=== PATIENT | male | born 1950 | race African-American/Black ===

== ENCOUNTER 2017-05-24 19:10 | Emergency (ER) | payer MEDICARE, MEDICAID ==
[~2017-05-24] VITALS: Ht 71.1 cm; Wt 36.3 kg
[~2017-05-24 19:10] MED LIST: UNOBMED
[2017-05-24 19:31] VITALS: BP 148/61
[2017-05-24 20:41] VITALS: BP 148/61
--- NOTE | 2017-05-24 21:12 | Emergency Room Report ---
History of Present Illness General Chief Complaint: Chest Pain Source: Patient Present Illness HPI 67-year-old male presents ED for evaluation. Patient complaining of chest pain and seizures. States he's been having seizures are not for the last several years. States he is currently not on any medication because "no one has prescribed it to me". Patient also complaining of chest pain. Sharp. Intermittent. Nonradiating. 10/11. Denies shortness of breath. Denies drug use. No other area relieving factors. Denies any other associated symptoms Allergies: Coded Allergies: No Known Allergies (Unverified , 12/06/15) Patient History Past Medical History: HTN, seizures Past Surgical History: none Pertinent Family History: none Social History: Denies: smoking, alcohol use, drug use Immunizations: UTD Reviewed Nursing Documentation: PMH: Agreed, PSxH: Agreed Nursing Documentation-PMH Past Medical History: No History, Except For Hx Cardiac Problems: Yes Hx Hypertension: Yes Hx Cancer: No Hx Gastrointestinal Problems: No Hx Neurological Problems: No Review of Systems All Other Systems: negative except mentioned in HPI Physical Exam Vital Signs Date Time Temp Pulse Resp B/P (MAP) Pulse Ox O2 Delivery O2 Flow Rate FiO2 05/24/17 19:24 97.0 94 16 148/51 100 Room Air 97.0 Sp02 EP Interpretation: reviewed, normal General Appearance: no apparent distress, alert, GCS 15, non-toxic Head: normocephalic, atraumatic Eyes: bilateral eye normal inspection, bilateral eye PERRL ENT: hearing grossly normal, normal pharynx, no angioedema, normal voice Neck: full range of motion, supple/symm/no masses Respiratory: chest non-tender, lungs clear, normal breath sounds, speaking full sentences Cardiovascular #1: regular rate, rhythm, no edema Cardiovascular #2: 2+ carotid (R), 2+ carotid (L), 2+ radial (R), 2+ radial (L) , 2+ dorsalis pedis (R), 2+ dorsalis pedis (L) Gastrointestinal: normal bowel sounds, non tender, soft, non-distended, no guarding, no rebound Rectal: deferred Genitourinary: normal inspection, no CVA tenderness Musculoskeletal: back normal, gait/station normal, non-tender Neurologic: alert, oriented x3, responsive, motor strength/tone normal, sensory intact, speech normal Psychiatric: judgement/insight normal, memory normal, mood/affect normal, no suicidal/homicidal ideation Reflexes: 3+ bicep (R), 3+ bicep (L), 3+ tricep (R), 3+ tricep (L), 3+ knee (R) , 3+ knee (L) Skin: normal color, no rash, warm/dry, well hydrated Lymphatic: no adenopathy Medical Decision Making Diagnostic Impression: Primary Impression: Chest pain Qualified Codes: R07.9 - Chest pain, unspecified ER Course Hospital Course 67-year-old male presents ED complaining of chest pain Differential diagnoses include: CA/unstable angina, contusion, muscle strain, PTX, rib fracture Clinical course Patient placed on stretcher. on diagnostic cardiac sonographer. After initial history and physical I ordered labs, EKG, chest x-ray EKG - NSR, twave inversions in lateral leads Chest x-ray- hyperinflated lungs. Patient declines IV access or blood draw. Reviewed EMR patient was previously admitted here for chest pain. Troponins were negative. Cocaine positive. Explained to patient that if he refuses blood draw he will have to leave. Patient states he wants to leave and be discharged I. I feel this is a highly complex case requiring extensive working including EKG/Rhythm strip, Xray/CT/US, Blood/urine lab work, repeat exams while in ED, and administration of strong opiates/narcotics for pain control, admission to hospital or close patient follow up. Diagnosis - chest pain Patient stable and discharged to home. Followup with PMD. Return to ED if symptoms recur or worsen EKG Diagnostic Results Rate: normal Rhythm: NSR ST Segments: other - twave inversions in lateral leads ASA given to the pt in ED: No Rhythm Strip Diag. Results EP Interpretation: yes Rhythm: NSR, no PVC's, no ectopy Chest X-Ray Diagnostic Results Chest X-Ray Diagnostic Results : Chest X-Ray Ordered: Yes # of Views/Limited/Complete: 1 View Indication: Chest Pain EP Interpretation: Yes Interpretation: no consolidation, no effusion, no pneumothorax, no acute cardiopulmonary disease, other - hyperinflated lungs Impression: Other - COPD Electronically Signed by: Electronically signed by Keanu Dupree MD Last Vital Signs Date Time Temp Pulse Resp B/P (MAP) Pulse Ox O2 Delivery O2 Flow Rate FiO2 2/20/18 20:41 89 21 148/61 100 Room Air 05/24/17 19:31 97.0 97.0 Status: improved Disposition: HOME, SELF-CARE Condition: Stable Referrals: NOT CHOSEN IPA/,REFERRING (PCP) Patient Instructions: Nonspecific Chest Pain KEANU DUPREE M.D. May 24, 2017 21:11
--- NOTE | 2017-05-25 10:19 | Diagnostic Imaging Report ---
Indication: Chest pain Technique: XRAY Chest 1v Comparison: 12/08/2015 Findings: Heart size and mediastinal contours are stable. Atherosclerotic calcifications again noted in the aortic arch. Multiple surgical clips project over the region of the left axilla. Portions of a stent noted projecting just to the left of the upper thoracic spine. There is unchanged mild central peribronchial thickening. There is no new focal airspace consolidation, pleural effusion or pneumothorax. Osseous structures demonstrate no acute abnormality. Impression: Evidence of chronic bronchitis/COPD. No radiographic evidence of acute cardiopulmonary disease or focal airspace consolidation.
--- NOTE | 2017-05-25 15:06 | Cardiology Report ---
APPROVED REPORT EKG Measurement Heart [id number] Sinus rhythm with premature atrial complexes Right bundle branch block Marked T wave abnormality, consider inferolateral ischemia Abnormal ECG
== END 2017-05-24 20:40 | disposition home or self-care (01) ==
LOC: EMR 20:00
DX: R07.89 Other chest pain (principal); I10 Essential (primary) hypertension
CPT/HCPCS: 71045; 93005; 99283